=== PATIENT | male | born 1990 | race Caucasian/White ===

== ENCOUNTER 2017-08-22 21:12 | Emergency (ER) | payer BC ==
[~2017-08-22] VITALS: Ht 185.4 cm; Wt 97.5 kg
[2017-08-22 21:20] VITALS: BP 139/76
[2017-08-22] MEDS ORDERED: HYDROCODONE/APAP 5/325MG 1 EACH TABLET PO STA (21:50)
[2017-08-22] MEDS ORDERED: HYDROCODONE/APAP 5/325MG 1 EACH TABLET ONE (21:53)
== END 2017-08-23 00:07 | disposition home or self-care (01) ==
LOC: ER 21:15 → UNDOADMIN 23:09 → MEDSG2 23:09 → ER 08-23 00:07
DX: S62.316A Displaced fracture of base of fifth metacarpal bone, right hand, initial encounter for closed fracture (principal); W22.03XA Walked into furniture, initial encounter; Y93.89 Activity, other specified; Y92.89 Other specified places as the place of occurrence of the external cause; Y99.8 Other external cause status
CPT/HCPCS: 73130-TC; A4606; Z7610